=== PATIENT | female | born 1955 | race African-American/Black ===

== ENCOUNTER → 2021-11-14 | Outpatient (CLI) | payer MEDICAID | END | disposition home or self-care (01) | LOC: Rad HDHVI 10:09 | PROVIDERS: ATTEND Internal Medicine Cardiovascular Disease | DX: I08.8 Other rheumatic multiple valve diseases (principal); R07.89 Other chest pain; R06.02 Shortness of breath | CPT/HCPCS: 93306 ==

== ENCOUNTER → 2021-11-20 | Outpatient (CLI) | payer MEDICAID ==
[~2021-11-20] VITALS: Ht 165.1 cm; Wt 66.7 kg
[~2021-11-20] MED LIST: ADENOSINE 56 MG in GIVE UN-DILUTED 0 ML IV ONE; ADENOSINE 90 MG/30 ML INJ IV ONE
== END | disposition home or self-care (01) ==
LOC: Rad HDHVI 09:33
PROVIDERS: ATTEND Internal Medicine Cardiovascular Disease
DX: R07.89 Other chest pain (principal); R06.02 Shortness of breath; E78.5 Hyperlipidemia, unspecified; I10 Essential (primary) hypertension; R42 Dizziness and giddiness; Z82.49 Family history of ischemic heart disease and other diseases of the circulatory system
CPT/HCPCS: 78452; 93005; 96374; 96375; A9500; J0153

== ENCOUNTER → 2021-12-12 | Outpatient (CLI) | payer OTHER, MEDICAID ==
[2021-12-12 12:06] LABS: Basophils # (auto) 0 10 ^3/uL (0-0.2); Basophils % (auto) 0.2 % (0.0-2.0); Eosinophils # (auto) 0.1 10 ^3/uL (0-0.8); Hematocrit 35.8 % (36.0-46.0); Hemoglobin 12.1 g/dL (12.2-16.2); Lymphocytes # (auto) 1.6 10 ^3/uL (0.4-5.4); Lymphocytes % (auto) 36.7 % (10.0-50.0); Mean Corpuscular Hemoglobin 31.6 pg (28.0-32.0); Mean Corpuscular Hgb Conc. 33.8 g/dL (32.0-36.0); Mean Corpuscular Volume 93.4 fL (80.0-100.0); Monocytes # (auto) 0.4 10 ^3/uL (0-1.3); Monocytes % (auto) 8.8 % (0.0-12.0); Neutrophils # (auto) 2.3 10 ^3/uL (1.6-8.6); Neutrophils % (auto) 52.3 % (37.0-80.0); Red Blood Cells 3.83 10^6/uL (4.0-5.20); Red Cell Distribution Width 13.6 % (11.8-14.3); White Blood Cell 4.4 10^3/uL (4.4-10.8)
[2021-12-12 12:32] LABS: Albumin 3.7 g/dL (3.4-5.0); Calcium 9.2 mg/dL (8.5-10.1); Potassium 3.6 mmol/L (3.5-5.1)
[2021-12-12 12:39] LABS: BUN/Creatinine Ratio 11.3; Bilirubin, Total 0.3 mg/dL (0.2-1.0); Total Protein 7.3 g/dL (6.4-8.2)
[2021-12-12 12:52] LABS: Urine Bacteria NONE SEEN /hpf (None Seen); Urine Blood Negative /uL (Negative); Urine Specific Gravity 1.006 (1.001-1.035); Urine WBC 1 /hpf (0 - 5)
== END | disposition home or self-care (01) ==
LOC: LAB 11:46
PROVIDERS: ATTEND Internal Medicine
DX: R73.03 Prediabetes (principal); I10 Essential (primary) hypertension; E78.5 Hyperlipidemia, unspecified; Z12.11 Encounter for screening for malignant neoplasm of colon
CPT/HCPCS: 36415; 80053; 80061; 81001; 82043; 83036; 85025; 85379

== ENCOUNTER → 2022-02-13 | Outpatient (CLI) | payer OTHER, MEDICAID | END | disposition home or self-care (01) | LOC: LAB 10:26 | PROVIDERS: ATTEND Internal Medicine | DX: R73.03 Prediabetes (principal); D64.9 Anemia, unspecified; E78.5 Hyperlipidemia, unspecified | CPT/HCPCS: 36415; 83036; 85652 ==

== ENCOUNTER → 2022-03-18 | Outpatient (CLI) | payer OTHER, MEDICAID | END | disposition home or self-care (01) | LOC: LAB 09:04 | PROVIDERS: ATTEND Internal Medicine | DX: R07.81 Pleurodynia (principal); R73.03 Prediabetes | CPT/HCPCS: 36415; 82550; 85652 ==

== ENCOUNTER → 2022-06-28 | Outpatient (CLI) | payer OTHER, MEDICAID ==
[2022-06-28 10:08] LABS: Basophils # (auto) 0 10 ^3/uL (0-0.2); Basophils % (auto) 0.6 % (0.0-2.0); Eosinophils # (auto) 0.1 10 ^3/uL (0-0.8); Eosinophils % (auto) 2.4 % (0.0-7.0); Hematocrit 39.1 % (36.0-46.0); Hemoglobin 12.7 g/dL (12.2-16.2); Lymphocytes % (auto) 39.9 % (10.0-50.0); Mean Corpuscular Hemoglobin 30.7 pg (28.0-32.0); Mean Corpuscular Hgb Conc. 32.6 g/dL (32.0-36.0); Mean Corpuscular Volume 94.2 fL (80.0-100.0); Monocytes # (auto) 0.6 10 ^3/uL (0-1.3); Monocytes % (auto) 11.3 % (0.0-12.0); Neutrophils # (auto) 2.2 10 ^3/uL (1.6-8.6); Neutrophils % (auto) 45.8 % (37.0-80.0); Red Blood Cells 4.15 10^6/uL (4.0-5.20); Red Cell Distribution Width 12.9 % (11.8-14.3); White Blood Cell 4.9 10^3/uL (4.4-10.8)
[2022-06-28 11:07] LABS: Potassium 3.6 mmol/L (3.5-5.1)
[2022-06-28 11:22] LABS: Albumin 3.6 g/dL (3.4-5.0); BUN/Creatinine Ratio 18.6; Calcium 9.1 mg/dL (8.5-10.1)
[2022-06-28 11:26] LABS: Bilirubin, Total 0.4 mg/dL (0.2-1.0)
== END | disposition home or self-care (01) ==
LOC: LAB 09:42
PROVIDERS: ATTEND Internal Medicine
DX: R73.03 Prediabetes (principal); D64.9 Anemia, unspecified
CPT/HCPCS: 36415; 80053; 83036; 85025

== ENCOUNTER 2023-02-12 14:52 | Emergency (ER) | payer OTHER, MEDICAID | END 2023-02-12 19:05 | disposition left against medical advice (07) | LOC: ER 14:52 → EDUNIT# 14:52 → EDBD 14:52 → ER 19:05 | DX: Z04.3 Encounter for examination and observation following other accident (principal); R06.02 Shortness of breath; Z53.21 Procedure and treatment not carried out due to patient leaving prior to being seen by health care provider | CPT/HCPCS: 93005 ==

== ENCOUNTER 2023-02-16 14:14 | Emergency (ER) | payer OTHER, MEDICAID ==
[~2023-02-16] VITALS: Ht 165.1 cm; Wt 70.0 kg
[2023-02-16 15:19] VITALS: BP 135/98; PULSE 89; RESP 20; TEMP 97.9; O2SAT 98
[2023-02-16] MEDS ORDERED: CYCL-837 PO (16:31)
== END 2023-02-16 16:34 | disposition home or self-care (01) ==
LOC: ER 14:14
DX: R07.89 Other chest pain (principal); I10 Essential (primary) hypertension; E11.9 Type 2 diabetes mellitus without complications; Z90.89 Acquired absence of other organs; Z79.899 Other long term (current) drug therapy; V59.9XXA Occupant (driver) (passenger) of pick-up truck or van injured in unspecified traffic accident, initial encounter; Y93.89 Activity, other specified; Y92.410 Unspecified street and highway as the place of occurrence of the external cause; Y99.8 Other external cause status
CPT/HCPCS: 71046; 93005

== ENCOUNTER 2023-11-14 17:06 | Emergency (ER) | payer OTHER, MEDICAID ==
[~2023-11-14] VITALS: Ht 167.6 cm; Wt 65.0 kg
[~2023-11-14 17:06] MED LIST changes: -ADENOSINE 56 MG in GIVE UN-DILUTED 0 ML IV ONE; -ADENOSINE 90 MG/30 ML INJ IV ONE; +CYCL-837 PO
[2023-11-14 17:10] VITALS: BP 137/88; RESP 16; O2SAT 97
[2023-11-14 17:13] VITALS: PULSE 88
== END 2023-11-15 00:01 | disposition left against medical advice (07) ==
LOC: ER 17:06 → EDBD 17:06 → ER 11-15 00:01
DX: R53.1 Weakness (principal); Z53.1 Procedure and treatment not carried out because of patient's decision for reasons of belief and group pressure
CPT/HCPCS: 93005

== ENCOUNTER 2024-10-24 15:26 | Emergency (ER) | payer OTHER, MEDICAID ==
[~2024-10-24] VITALS: Ht 167.6 cm; Wt 60.0 kg
[2024-10-24 15:35] VITALS: BP 150/100; PULSE 100; RESP 20; TEMP 97.9; O2SAT 99
--- NOTE | 2024-10-24 16:42 | ED.PDOC ---
History of Present Illness HPI Comments 69 year old female presents to the ED via EMS with a chief complaint of headache onset 1 day. Per EMS, patient calls 911 frequently, has a call button, once EMS arrives patient refuses help, becomes aggressive. Upon EMS arrival today, patient was complaining of headache, and that she does not want to live like this. PMHx CVA with LT sided deficit, HTN, HLD, DM, seizure, and is not complaint with medication, per EMS. Patient states she lives on her own, has a caregiver, was given a call button to press when she needs help. Patient fell on her back yesterday, hit her head, is currently experiencing headache. Patient states she was told she had a blood clot on LT leg, was told to call 911 if she hit her head. Upon assessment, patient denies suicidal ideation. Denies SI, HI, chest pain, shortness of breath, nausea, vomiting, diarrhea, fevers, chills, cough, cold, congestion. No other symptoms or modifying factors present at this time. Chief Complaint: Failure to Thrive Time Seen by MD: 15:55 Primary Care Provider: UNKNOWN Reviewed Notes: Medications, Allergies Allergies: Coded Allergies: No Known Drug Allergy (Verified Allergy, Unknown, 11/20/21) Home Meds Active Scripts Cyclobenzaprine Hcl (Cyclobenzaprine Hcl) 5 Mg Tab, 5 MG PO TID PRN for 10 Days, #30 TAB Prov:RAMINJUAN AROSEMARY Wells NP 02/16/23 Information Source: Patient, Emergency Med Personnel Mode of Arrival: EMS Severity: Moderate Timing: Days Duration: Since onset Prehospital treatment: None Past Medical History PAST MEDICAL HISTORY: CVA, DM, High Lipids, HTN, Seizures Surgical History: , Thyroidectomy STRAP CUTTER History: No Pertinent STRAP CUTTER History Family History Family History: Reviewed,noncontributory to illness, No family hx of Cancer, No family hx of DM, No family hx of Heart ander, No family hx of HTN, No family hx ofKidney ander, No family hx of Liver ander, No family hx of Lung ander, No family hx of Stroke Social History Smoker: Non-Smoker Alcohol: Denies ETOH Use Drugs: Denies Drug Use Lives In: Home Constitutional: denies: chills, diaphoresis, fatigue, fever, malaise, sweats, weakness, others EENTM: denies: blurred vision, double vision, ear bleeding, ear discharge, ear drainage, ear pain, ear ringing, eye pain, eye redness, hearing loss, mouth pain, mouth swelling, nasal discharge, nose bleeding, nose congestion, nose pain, photophobia, tearing, throat pain, throat swelling, voice changes, others Respiratory: denies: cough, hemoptysis, orthopnea, SOB at rest, shortness of breath, SOB with excertion, stridor, wheezing, others Cardiovascular: denies: chest pain, dizzy spells, diaphoresis, Dyspnea on exertion, edema, irregular heart beat, left arm pain, lightheadedness, palpitations, PND, syncope, others Gastrointestinal: denies: abdomen distended, abdominal pain, blood streaked bowels, constipated, diarrhea, dysphagia, difficulty swallowing, hematemesis, melena, nausea, poor appetite, poor fluid intake, rectal bleeding, rectal pain, vomiting, others Genitourinary: denies: abnormal vagina bleeding, burning, dyspareunia, dysuria, flank pain, frequency, hematuria, incontinence, pain, , vagina discharge, urgency, others Neurological: reports: headache; denies: dizziness, fainting, left sided numbness, left sided weakness, numbness, paresthesia, pre-existing deficit, right sided numbness, right sided weakness, seizure, speech problems, tingling, tremors, weakness, others Musculoskeletal: reports: neck pain; denies: back pain, gout, joint pain, joint swelling, muscle pain, muscle stiffness, others Integumetry: denies: bruises, change in color, change in hair/nails, dryness, laceration, lesions, lumps, rash, wounds, others Allergic/Immunocompromised: denies: Difficulty Healing, Frequent Infections, Hives, Itching, others Hematologic/Lymphatic: denies: anemia, blood clots, easy bleeding, easy bruising, swollen glands, others Endocrine: denies: excessive hunger, excessive sweating, excessive thirst, excessive urination, flushing, intolerance to cold, intolerance to heat, une xplained weight gain, unexplained weight loss, others Psychiatric: denies: anxiety, bipolar disorder, depression, hopeless, panic disorder, schizophrenia, sleepless, suicidal, others All Other Systems: Reviewed and Negative Physical Exam General Appearance: Other (loud, occacionally aggressive, able to speak with me in clear sentences.) HEENT: Normal ENT Inspection, Pharynx Normal, TMs Normal Neck: Limited Range of Motion, Non-Tender, Normal Respiratory: Chest Non-Tender, Lungs Clear, No Accessory Muscle Use, No Respiratory Distress, Normal Breath Sounds Cardiovascular: No Edema, No JVD, No Murmur, No Gallop, Normal Peripheral Pulses, Regular Rate/Rhythm Breast Exam: Deferred Gastrointestinal: No Organomegaly, Non Tender, No Pulsatile Mass, Normal Bowel Sounds, Soft Genitalia: Deferred Pelvic: Deferred Rectal: Deferred Extremities: No calf tenderness, Normal capillary refill Musculoskeletal : Apperance: Normal Neurologic: Alert, Other (LT sided paralysis secondary to CVA, LT arm and LT leg) Cerebellar Function: Normal Reflexes: Normal Skin: Dry, Normal Color, Warm Lymphatic: No Adenopathy Was a procedure done? Was a procedure done?: No Differential Dx Considerations may include: disabled, depression, dementia, psychosis, electrolyte abnormality, UTI, pneumonia, intracranial hemorrhage, cervical spine fracture, dehydration, suicidal ideation, homicidal ideation X-Ray, Labs, Meds, VS Vital Signs Date Time Temp Pulse Resp B/P (MAP) Pulse Ox O2 Delivery O2 Flow Rate FiO2 10/24/24 15:35 97.9 100 20 150/100 (117) 99 97.9 69-year-old female presents here from home. EMS was called by her. However upon EMS arrival she was aggressive with them and she was stating such thing of the she no longer wants to live like this. Per EMS she calls EMS frequently. Patient does live by herself despite having complete left-sided paresis. She does state that she gets her meals breakfast lunch and dinner for mom wheels and meals on wheels and has someone deliver all her necessary items every other week. However she is aggressive in the ER, immediately becomes upset with paramedics stating that they are being racist. Although she declines any suicidal ideation for me here. She does state that she fell yesterday and is having a headache and neck pain. Therefore a CT scan of the brain and cervical spine has been done which are negative. I did order blood work however patient declines it. At this time caretakers at bedside. 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 Both nurse and I Good assess the patient. Patient is alert and oriented to person place and time. She is not aggressive at this time and is able to hold a calm conversation. She advised that she does have a headache and I have given her Tylenol for this. At this time patient declines any suicidal or homicidal ideation. She does not appear to be hallucinating. This time I will be discharging her home. M48/M60 Tank Driver will be taking her home. Time of 1ST Reevaluation: 16:25 Reevaluation 1ST: Unchanged Patient Education/Counseling: Diagnosis, Treatment, Prognosis, Need For Follow Up Family Education/Counseling: No Family Present Departure 1 Departure Time of Disposition: 17:48 Impression: Primary Impression: Headache Qualified Codes: R51.9 - Headache, unspecified Additional Impression: Aggressive behavior of adult Disposition: 01 HOME / SELF CARE / HOMELESS Condition: Fair Critical Care Note Critical Care Time?: No Stability Stability form required: No Heart Score Heart Score: Heart Score Response (Comments) Value History N/A 0 EKG N/A 0 Age N/A 0 Risk Factors N/A 0 Troponin N/A 0 Total 0 I personally scribed for ELOISA SIMENTAL MD ([email or web address]) on 10/24/24 at 16:42. Electronically submitted by Jordana Carnes ([email or web address]). ELOISA SIMENTAL MD October 24, 2024 16:42
--- NOTE | 2024-10-24 17:44 | DVH ---
EXAM: CT CERVICAL WITHOUT CONTRAST INDICATION: ro fracture EXAM DATE: 10/24/2024 05:13 PM COMPARISON: None TECHNIQUE: Multiple axial CT images of the cervical spine were obtained using bone algorithm. Axial a nd coronal reformatting was done. Bone and soft tissue windows were reviewed. Radiation Dose Information: CT Dose: CTDI volume is 11.23 mGy. Dose-length product is 240.65 mGy*cm FINDINGS: The cervical alignment is intact. No acute cervical spine fracture is identified. The vertebral body heights are intact. No suspicious osseous lesions are identified. Moderate degenerative changes throughout the cervical spine. There is no prevertebral soft tissue swelling. IMPRESSION: 1. No evidence of acute cervical spine fracture or traumatic malalignment. 2. All CT scans at this medical facility are performed using dose modulation techniques as appropriat e to a performed exam including the following: Automated exposure control was utilized; adjustment of the MA and/or KV according to patient size; and use of iterative reconstruction technique.
--- NOTE | 2024-10-24 17:46 | DVH ---
EXAM: CT HEAD WITHOUT CONTRAST INDICATION: ro bleed TECHNIQUE: CT of the head without intravenous contrast. Radiation Dose : 1. Head: CT Dose: CTDI volume is 54.07 mGy. Dose-length product is 957.21 mGy*cm The dose indicators for CT are the volume Computed Tomography (CT) Dose Index (CTDIvol) and the Dose Length Product (DLP), and are measured in units of mGy and mGy-cm, respectively. These indicators are not patient dose, but values generated from the CT scanner acquisition factors. The report includes radiation exposure data for exposures received during this examination. COMPARISON: None FINDINGS: There is no evidence of acute intracranial hemorrhage, extra-axial collection, mass effect, midline s hift, herniation or hydrocephalus. Mild cerebral volume loss. Punctate mineralization in the bilateral basal ganglia. Small round dural calcification versus osteoma along the left frontal convexity (series 602, image 35). The kurtz-white differentiation is intact. There is a subcentimeter hypodense focus in the left weaver radiata (series 2, image 35). Mild periventricular and subcortical white matter hypoattenuation is nonspecific but may be related t o small vessel ischemic disease. Minimal mucosal thickening in the ethmoid sinuses. The bilateral mastoids are clear. The surrounding soft tissues and osseous structures are unremarkable. IMPRESSION: 1. No evidence of acute hemorrhage, midline shift, or mass effect. 2. Mild chronic microvascular ischemia. Small age-indeterminate lacunar infarct in the left weaver ra diata. Consider MRI if there is clinical concern for acute ischemia. Radiation optimization: All CT scans at this facility use at least one of these dose optimization christina hniques: automated exposure control mA and/or kV adjustment per patient size (includes targeted exam s where dose is matched to clinical indication) or iterative reconstruction.
[2024-10-24] MEDS: ACETAMINOPHEN 325 MG TAB PO ONE (18:25)
== END 2024-10-24 18:30 | disposition home or self-care (01) ==
LOC: EDBD 15:26 → ER 15:29
DX: R51.9 Headache, unspecified (principal); R62.7 Adult failure to thrive; I10 Essential (primary) hypertension; E11.9 Type 2 diabetes mellitus without complications; E78.5 Hyperlipidemia, unspecified; I67.82 Cerebral ischemia; E03.9 Hypothyroidism, unspecified; Z90.89 Acquired absence of other organs; Z98.890 Other specified postprocedural states
CPT/HCPCS: 70450; 72125

== ENCOUNTER 2024-11-05 14:17 | Emergency (ER) | payer OTHER, MEDICAID ==
[~2024-11-05] VITALS: Ht 162.6 cm; Wt 53.0 kg
[2024-11-05 15:21] VITALS: BP 143/93; TEMP 99.4
--- NOTE | 2024-11-05 15:40 | ED.PDOC ---
History of Present Illness HPI Comments This is a 69-year-old female who comes in with chief complaint of lower back pain. The patient states that her electric wheelchair accidentally turned on and dragged her partly off the bed. The patient remained there for a while and developed some back pain. 911 was called and the patient was transported to our facility. The patient states that the pain was approximately a 6/10. Chief Complaint: Fall Injury Time Seen by MD: 14:37 Primary Care Provider: UNKNOWN Reviewed Notes: Nurses Notes, Stock Worker Notes, Medications, Allergies (No allergies to medications) Allergies: Coded Allergies: No Known Drug Allergy (Verified Allergy, Unknown, 11/20/21) Home Meds Active Scripts Cyclobenzaprine Hcl (Cyclobenzaprine Hcl) 5 Mg Tab, 5 MG PO TID PRN for 10 Days, #30 TAB Prov:JUAN A FAUSTIN NP 02/16/23 Information Source: Patient, Emergency Med Personnel Mode of Arrival: EMS Severity: Moderate Timing: Hours Duration: Since onset Prehospital treatment: None Associated signs and symptoms Lower back pain Past Medical History PAST MEDICAL HISTORY: CVA, DM, High Lipids, HTN, Seizures Surgical History: , Thyroidectomy FACTORY MAINTENANCE TECHNICIAN History: No Pertinent FACTORY MAINTENANCE TECHNICIAN History Family History Family History: Reviewed,noncontributory to illness, No family hx of Cancer, No family hx of DM, No family hx of Heart ander, No family hx of HTN, No family hx ofKidney ander, No family hx of Liver ander, No family hx of Lung ander, No family hx of Stroke Social History Smoker: Non-Smoker Alcohol: Denies ETOH Use Drugs: Denies Drug Use Lives In: Home Constitutional: denies: chills, diaphoresis, fatigue, fever, malaise, sweats, weakness, others EENTM: denies: blurred vision, double vision, ear bleeding, ear discharge, ear drainage, ear pain, ear ringing, eye pain, eye redness, hearing loss, mouth pain, mouth swelling, nasal discharge, nose bleeding, nose congestion, nose pain, photophobia, tearing, throat pain, throat swelling, voice changes, others Respiratory: denies: cough, hemoptysis, orthopnea, SOB at rest, shortness of breath, SOB with excertion, stridor, wheezing, others Cardiovascular: denies: chest pain, dizzy spells, diaphoresis, Dyspnea on exertion, edema, irregular heart beat, left arm pain, lightheadedness, palpitations, PND, syncope, others Gastrointestinal: denies: abdomen distended, abdominal pain, blood streaked bowels, constipated, diarrhea, dysphagia, difficulty swallowing, hematemesis, melena, nausea, poor appetite, poor fluid intake, rectal bleeding, rectal pain, vomiting, others Genitourinary: denies: abnormal vagina bleeding, burning, dyspareunia, dysuria, flank pain, frequency, hematuria, incontinence, pain, , vagina discharge, urgency, others Neurological: denies: dizziness, fainting, headache, left sided numbness, left sided weakness, numbness, paresthesia, pre-existing deficit, right sided numbness, right sided weakness, seizure, speech problems, tingling, tremors, weakness, others Musculoskeletal: reports: back pain; denies: gout, joint pain, joint swelling, muscle pain, muscle stiffness, neck pain, others Integumetry: denies: bruises, change in color, change in hair/nails, dryness, laceration, lesions, lumps, rash, wounds, others Allergic/Immunocompromised: denies: Difficulty Healing, Frequent Infections, Hives, Itching, others Hematologic/Lymphatic: denies: anemia, blood clots, easy bleeding, easy bruising, swollen glands, others Endocrine: denies: excessive hunger, excessive sweating, excessive thirst, excessive urination, flushing, intolerance to cold, intolerance to heat, unexplained weight gain, unexplained weight loss, others Psychiatric: denies: anxiety, bipolar disorder, depression, hopeless, panic disorder, schizophrenia, sleepless, suicidal, others Physical Exam General Appearance: Mild Distress HEENT: Normal ENT Inspection, Pharynx Normal, TMs Normal Neck: Full Range of Motion, Non-Tender, Normal, Normal Inspection Respiratory: Chest Non-Tender, Lungs Clear, No Accessory Muscle Use, No Respiratory Distress, Normal Breath Sounds Cardiovascular: No Edema, No JVD, No Murmur, No Gallop, Normal Peripheral Pulses, Regular Rate/Rhythm Breast Exam: Deferred Gastrointestinal: No Organomegaly, Non Tender, No Pulsatile Mass, Normal Bowel Sounds, Soft Genitalia: Deferred Pelvic: Deferred Rectal: Deferred Extremities: No calf tenderness, Normal capillary refill, No pedal edema Musculoskeletal : Location: Bilateral Extremity Location: Back Apperance: Limited ROM, Tenderness: Mild Neurologic: Alert, barkeep II-XII nml as Tested, No Motor Deficits, Normal Affect, Normal Mood, No Sensory Deficits Cerebellar Function: Normal Reflexes: Normal Skin: Dry, Normal Color, Warm Lymphatic: No Adenopathy Was a procedure done? Was a procedure done?: No Differential Dx Considerations may include: Fracture, strain, contusion X-Ray, Labs, Meds, VS Vital Signs Date Time Temp Pulse Resp B/P (MAP) Pulse Ox O2 Delivery O2 Flow Rate FiO2 11/05/24 15:21 99.4 104 16 143/93 (110) 95 99.4 11/05/24 14:52 97.8 101 16 113/82 (92) 96 97.8 Lab Test 11/05/24 14:41 Range/Units POC Glucose 152 H 70-106 mg/dl The patient does not want any x-rays done at this time. The patient was able to get up and states that the pain has decreased significantly. The patient states that she was taking her Tylenol at home and would like to be discharged at this time The patient's forestry farm laborer is at bedside The patient was being placed in the car in his being discharged. Time of 1ST Reevaluation: 15:40 Reevaluation 1ST: Improved Patient Education/Counseling: Diagnosis, Treatment, Prognosis, Need For Follow Up Family Education/Counseling: Diagnosis, Treatment, Prognosis, Need For Follow Up Departure 1 Departure Time of Disposition: 15:39 Impression: Primary Impression: Aggressive behavior of adult Additional Impression: Musculoskeletal back pain Disposition: 01 HOME / SELF CARE / HOMELESS Condition: Fair Discharged With: Self Critical Care Note Critical Care Time?: No Stability Stability form required: No Heart Score Heart Score: Heart Score Response (Comments) Value History N/A 0 EKG N/A 0 Age N/A 0 Risk Factors N/A 0 Troponin N/A 0 Total 0 ANDREW PALACIO MD November 05, 2024 15:40
[2024-11-05 16:05] VITALS: PULSE 72; RESP 16; O2SAT 97
== END 2024-11-05 16:04 | disposition home or self-care (01) ==
LOC: EDUNIT# 14:17 → EDBD 14:17 → ER 14:22
DX: R46.89 Other symptoms and signs involving appearance and behavior (principal); M54.50 Low back pain, unspecified; E11.9 Type 2 diabetes mellitus without complications; I10 Essential (primary) hypertension; Z86.73 Personal history of transient ischemic attack (TIA), and cerebral infarction without residual deficits; Z98.890 Other specified postprocedural states; Z90.89 Acquired absence of other organs; Z79.899 Other long term (current) drug therapy
CPT/HCPCS: 82947; 82962